=== PATIENT | female | born 2000 | race African-American/Black ===

== ENCOUNTER 2018-05-01 01:12 | Emergency (ER) | payer OTHER ==
[~2018-05-01] VITALS: Ht 162.6 cm; Wt 113.4 kg
[2018-05-01 01:46] VITALS: BP 136/62
[2018-05-01 02:44] LABS: Urine Bacteria FEW /hpf (None Seen); Urine Blood Negative /uL (Negative); Urine Mucus FEW (None Seen); Urine Specific Gravity 1.025 (1.001-1.035); Urine WBC 1 /hpf (0 - 5)
== END 2018-05-01 02:22 | disposition left against medical advice (07) ==
LOC: ER 01:15
DX: R06.02 Shortness of breath (principal); R11.2 Nausea with vomiting, unspecified; Z53.21 Procedure and treatment not carried out due to patient leaving prior to being seen by health care provider
CPT/HCPCS: 81001; 81025; 93005